=== PATIENT | male | born 1980 | race African-American/Black ===

== ENCOUNTER 2024-11-20 13:07 | Inpatient (IN) | payer OTHER ==
[2024-11-20] MEDS ORDERED: BISMUTH SUBSALICYLATE 262 MG/15 ML BTL PO PRN (13:27)
[2024-11-20] MEDS ORDERED: BENZOCAINE/MENTHOL (CHLORASEPTIC ) LOZENGE MM PRN (13:27)
[2024-11-20] MEDS ORDERED: NICOTINE POLACRILEX 4 MG GUM BUC PRN (13:27)
[2024-11-20] MEDS ORDERED: IBUPROFEN 400 MG TABLET (FP) PO PRN (13:27)
[2024-11-20] MEDS ORDERED: DICYCLOMINE HCL 10 MG CAPSULE PO PRN (13:27)
[2024-11-20] MEDS ORDERED: POLYETHYLENE GLYCOL (HEALTHYLAX) 3350 17 GM PACKET PO PRN (13:27)
[2024-11-20] MEDS ORDERED: BENZONATATE 200 MG CAPSULE PO PRN (13:27)
[2024-11-20] MEDS ORDERED: IBUPROFEN 600 MG TABLET (FP) PO PRN (13:27)
[2024-11-20] MEDS ORDERED: NALOXONE (NARCAN) HCL 4 MG/0.1 ML SPRAY NS PRN (13:27)
[2024-11-20] MEDS ORDERED: MAG HYDROX/AL HYDROX/SIMETH 30 ML UNIT-DOSE CUP PO PRN (13:27)
[2024-11-20] MEDS ORDERED: diazePAM 5 MG TABLET PO PRN (13:27)
[2024-11-20] MEDS ORDERED: LOPERAMIDE HCL 2 MG CAPSULE PO PRN (13:27)
[2024-11-20] MEDS ORDERED: hydrOXYzine PAMOATE 25 MG CAPSULE (FP) PO PRN (13:27)
[2024-11-20] MEDS ORDERED: MAGNESIUM HYDROX 2400MG/30ML ORAL SUSPENSION 30 ML CUP PO PRN (13:27)
[2024-11-20] MEDS ORDERED: ONDANSETRON *ODT* 4 MG TABLET SL PRN (13:27)
[2024-11-20] MEDS ORDERED: guaiFENesin 600 MG TABLET.ER (FP) PO PRN (13:27)
[2024-11-20] MEDS ORDERED: PRENATAL VITAMINS W/ FOLIC ACID TABLET (FP) PO ONE (15:29)
[2024-11-20] MEDS: PRENATAL VITAMINS W/ FOLIC ACID TABLET (FP) PO SCH (15:30)
[2024-11-20] MEDS: NALTREXONE HCL 50 MG TABLET PO SCH (15:59)
[2024-11-20 16:09] VITALS: BMI 44.4
[2024-11-20] MEDS: diazePAM 5 MG TABLET PO SCH (17:24)
[2024-11-20] MEDS: MELATONIN 5 MG TABLETS PO SCH (22:46)
[2024-11-20] MEDS: THIAMINE 100 MG TABLET PO SCH (22:46)
[2024-11-21 11:21] LABS: POTASSIUM 4.5 mmol/L (3.5-5.1)
[2024-11-21 11:23] LABS: CALCIUM 9.2 mg/dL (8.5-10.1); HEMATOCRIT 48.2 % (35.4-49); HEMOGLOBIN 15.7 GM/dL (11.7-16.9); MCH 26.5 pg (25.7-33.7); MCHC 32.7 g/dl (32.0-35.9); MEAN CELL VOLUME 81.1 fl (80-96); MEAN PLT VOLUME 9.1 fl (7.5-11.1); PLATELET COUNT 222 10^3/uL (134-434); RBC 5.94 M/mm3 (4.00-5.60); WHITE BLOOD COUNT 8.3 K/mm3 (4.0-10.0)
[2024-11-21 11:24] LABS: ALBUMIN 3.8 g/dl (3.4-5.0); BLOOD UREA NITROGEN 13.3 mg/dL (7-18)
[2024-11-21 11:27] LABS: CREATININE 1.1 mg/dL (0.55-1.3)
[2024-11-21 11:28] LABS: BILIRUBIN,TOTAL 0.5 mg/dL (0.2-1)
[2024-11-21 11:29] LABS: TOT PROT 7.6 g/dl (6.4-8.2)
[2024-11-21] MEDS: ASPIRIN COATED 81 MG TABLET.EC PO SCH (12:25)
[2024-11-21] MEDS: ACETAMINOPHEN 325 MG TABLET (FP) PO PRN (17:39)
[2024-11-21] MEDS: traZODone HCL 50 MG TABLET (FP) PO SCH (22:32)
[2024-11-21] MEDS: ATORVASTATIN CA 40 MG TABLET (FP) PO SCH (22:32)
[2024-11-21] MEDS: GABAPENTIN 100 MG CAPSULE PO SCH (22:32)
[2024-11-21] MEDS: METHOCARBAMOL 500 MG TABLET PO PRN (22:32)
[2024-11-22] MEDS: diazePAM 5 MG TABLET PO SCH (06:12)
[2024-11-23] MEDS: diazePAM 5 MG TABLET PO SCH (05:53)
[2024-11-24] MEDS: diazePAM 5 MG TABLET PO ONE (05:42)
[2024-11-24 05:55] VITALS: RESP 18
[2024-11-24 08:40] VITALS: BP 110/62; PULSE 63; TEMP 97.7
== END 2024-11-24 10:08 | disposition home or self-care (01) | DRG 774 ==
LOC: YASAS 13:07 → Y3N 15:24
PROVIDERS: ADMIT Allergy & Immunology; ATTEND Allergy & Immunology
PROC: HZ2ZZZZ Detoxification Services for Substance Abuse Treatment (ICD-10-PCS; principal; 2024-11-20)
DX: F10.230 Alcohol dependence with withdrawal, uncomplicated (principal); F14.20 Cocaine dependence, uncomplicated; F17.210 Nicotine dependence, cigarettes, uncomplicated; F41.8 Other specified anxiety disorders; F43.10 Post-traumatic stress disorder, unspecified; R76.11 Nonspecific reaction to tuberculin skin test without active tuberculosis
CPT/HCPCS: 0241U-QW; 36415; 80053; 80305; 80307; 85027; 86780; 93005; 93010